=== PATIENT | female | born 1960 | race Caucasian/White ===

== ENCOUNTER 2018-12-03 13:48 | Emergency (ER) | payer MEDICAID ==
[~2018-12-03] VITALS: Ht 154.9 cm; Wt 79.8 kg
[2018-12-03 14:15] VITALS: BP 148/97; Ht 154.9 cm; Wt 79.8 kg
== END 2018-12-03 14:55 | disposition home or self-care (01) ==
LOC: ED 13:48
DX: H92.02 Otalgia, left ear (principal); M54.2 Cervicalgia; J00 Acute nasopharyngitis [common cold]